=== PATIENT | male | born 1965 | race American Indian/Alaskan Native ===

== ENCOUNTER → 2024-09-23 12:49 | Outpatient (REF) | payer BC, SELFPAY | LOC: HWRAD 12:49 | PROVIDERS: ATTENDING PHYSICIAN Family Medicine | DX: M25.561 Pain in right knee (principal) | CPT/HCPCS: 73564 ==

== ENCOUNTER 2025-07-14 06:21 | Day surgery (SDC) | payer BC, SELFPAY | END 2025-07-14 10:45 | disposition home or self-care (01) | LOC: GI 06:21 | PROVIDERS: ATTENDING PHYSICIAN Internal Medicine Gastroenterology | DX: Z12.11 Encounter for screening for malignant neoplasm of colon (principal); K64.8 Other hemorrhoids; Q43.8 Other specified congenital malformations of intestine; K62.1 Rectal polyp; D12.2 Benign neoplasm of ascending colon | CPT/HCPCS: 45385; 88305 ==